=== PATIENT | male | born 1940 | race Caucasian/White ===

== ENCOUNTER → 2017-08-27 | Outpatient (CLI) | payer BC, OTHER ==
[~2017-08-27] MED LIST: ASPIRIN325 PO; CARDURA4 MG PO; COUMADIN 5 MG TA5 M1 PO; ENOXAPARIN100 MG/11 SUBQ; FLOMAX0.4 MG PO; LIPITOR10 MG PO; MOEXIPRIL-HCTZ1 EAC1 PO; PERCOCET 5-3251 EACH PO; PERCOCET PO; PREDNISONE 10 M10 MG PO; PROSCAR 5MG TABL5 MG PO; TOPROL XL50 MG PO; WHEELCHAIR1 EACH MC
== END ==
LOC: M.MRI 08-25 11:30 → M.RAD 09:55
DX: M47.26 Other spondylosis with radiculopathy, lumbar region (principal); M46.06 Spinal enthesopathy, lumbar region; M46.07 Spinal enthesopathy, lumbosacral region; M48.062 Spinal stenosis, lumbar region with neurogenic claudication

== ENCOUNTER 2019-10-19 11:42 | Inpatient (IN) | payer BC ==
[~2019-10-19] VITALS: Ht 180.3 cm; Wt 111.1 kg
[2019-10-19 11:51] VITALS: BP 167/105
[2019-10-19] MEDS ORDERED: HYDROCHLOROTHIA25 M2 PO (12:07)
[2019-10-19] MEDS ORDERED: COUMADIN 5 MG TA5 M1 (12:09)
[2019-10-19 12:29] LABS: BE 0.3 mmol/L (-2 to +3); PO2 70.6 mmHg (75.0-100.0)
[2019-10-19 12:36] LABS: ABSOLUTE EOSINOPHILS 0.1 thou/uL (0.0-0.7); ABSOLUTE LYMPHOCYTES 0.7 thou/uL (0.8-5.3); ABSOLUTE MONOCYTES 0.7 thou/uL (0.0-1.2); ABSOLUTE NEUTROPHILS 7.3 thou/uL (1.6-8.1); BASOPHILS 0.5 %; HEMATOCRIT 41.8 % (42.0-52.0); HEMOGLOBIN 14.2 gm/dL (14.0-18.0); LYMPHOCYTES 8.4 %; MCH 32.1 pg (26.0-34.0); MCV 94.2 fL (80.0-100.0); MONOCYTES 7.8 %; MPV 8.1 fl. (7.2-11.1); NUCLEATED RBCS 0 /100WBC; PLATELET COUNT* 198 thou/uL (150-400); POLYS 82.3 %; RBC 4.44 mil/uL (4.50-6.00); RDW-CV 14.3 % (10.5-14.5); WBC 8.8 thou/uL (4.0-11.0)
[2019-10-19 12:43] LABS: INR 2.5; PROTIME 24.8 Seconds (9.20-11.50)
[2019-10-19 12:44] LABS: CALCIUM 8.3 mg/dL (8.5-10.1); CREATININE 1.3 mg/dL (0.6-1.3); POTASSIUM 3.6 mmol/L (3.5-5.1)
[2019-10-19 12:54] LABS: ALBUMIN 3.1 g/dL (3.4-5.0); MAGNESIUM 1.6 mg/dL (1.8-2.4); TOTAL BILIRUBIN 0.6 mg/dL (<0.1-1.0)
[2019-10-19 13:43] LABS: URINE BILIRUBIN NEGATIVE (Negative); URINE BLOOD 3+ (Negative); URINE CLARITY TURBID; URINE COLOR DARK YELLOW; URINE GLUCOSE-RANDOM NEGATIVE (Negative); URINE KETONES NEGATIVE (Negative); URINE LEUKOCYTES-REFLEX 1+ (Negative); URINE NITRITE-REFLEX POSITIVE (Negative); URINE PROTEIN 2+ (Negative); URINE SPECIFIC GRAVITY 1.025 (1.005-1.030); URINE UROBILINOGEN 0.2 E.U./dl (0.2-1.0)
[2019-10-19 13:59] LABS: BACTERIA-REFLEX >30 Many /HPF (None Seen); CASTS None Seen /LPF (None Seen); CRYSTALS None Seen /LPF (None Seen); SQUAMOUS 0-3 Few /LPF (0-3); URINE RBC >20 Many /HPF (0-2); URINE WBC-REFLEX >25 Many /HPF (0-5); WBC CLUMPS Many (None Seen)
--- NOTE | 2019-10-19 14:50 | NUR ---
PT PUT ON HIGH FLOW OXYGEN PT COULD NOT TOLERATE BIPAP. NOTIFIED AND RT.
[2019-10-19 16:07] VITALS: BP 148/78
--- NOTE | 2019-10-19 18:38 | NUR ---
PT ALERT AND ORIENTED BUT [place] SOA NOTED ON 5L HI DARVIN USUALLY 4L NC IV FLUIDS AT 100ML/H 202 ON BLADDER SCAN PT DRIBBLES CONT. WITH HESITANCY URINAL GIVEN PT IS UNSTEADY PAIN TO RIGHT SIDE ANXIOUS AT TIMES MEDS HELP CALL LIGHT IN REACH
[2019-10-19 20:00] VITALS: BP 119/75
--- NOTE | 2019-10-19 20:00 | NUR ---
RECEIVED REPORT AND ASSUMED CARE OF PT, ASSESSMENT COMPLETED. PT RESTING WITH EYES CLOSED. VOIDING FREQ IN SM AMTS OF FOUL, CLOUDY YELLOW URINE PER URINAL. TELEMETRY ON SHOWING SR WITH 1ST AVB. WILL CONT TO MONITOR AND ASSIST NEEDED.
[2019-10-20] VITALS: BP 120/75
[2019-10-20 04:00] VITALS: BP 114/70
[2019-10-20 05:19] LABS: ABSOLUTE EOSINOPHILS 0.2 thou/uL (0.0-0.7); ABSOLUTE LYMPHOCYTES 0.9 thou/uL (0.8-5.3); ABSOLUTE MONOCYTES 0.9 thou/uL (0.0-1.2); ABSOLUTE NEUTROPHILS 4.4 thou/uL (1.6-8.1); BASOPHILS 0.6 %; EOSINOPHILS 3.5 %; HEMATOCRIT 38.1 % (42.0-52.0); HEMOGLOBIN 12.8 gm/dL (14.0-18.0); INR 2.4; LYMPHOCYTES 14.1 %; MCH 31.8 pg (26.0-34.0); MCHC 33.6 g/dL (28.0-37.0); MCV 94.7 fL (80.0-100.0); MPV 8.2 fl. (7.2-11.1); NUCLEATED RBCS 0 /100WBC; PLATELET COUNT* 186 thou/uL (150-400); POLYS 67.8 %; PROTIME 24.1 Seconds (9.20-11.50); RBC 4.03 mil/uL (4.50-6.00); RDW-CV 14.3 % (10.5-14.5); WBC 6.5 thou/uL (4.0-11.0)
[2019-10-20 05:27] LABS: CALCIUM 7.6 mg/dL (8.5-10.1); CREATININE 1.3 mg/dL (0.6-1.3); POTASSIUM 3.5 mmol/L (3.5-5.1)
--- NOTE | 2019-10-20 06:02 | NUR ---
SLEPT WELL ALL NIGHT. CONT TO HAVE FREQ URINATION IN SM AMTS. CONT TO BE SOA WITH EXERTION. O2 ON AT 5L/HFC. NO CHANGE IN ASSESSMENT. TELEMETRY CONT TO SHOW SR WITH 1ST AVB. HS GOALS OF REST AND SAFETY ACHIEVED. HOURLY ROUNDING OBSERVED.
[2019-10-20 08:23] VITALS: BP 151/82
--- NOTE | 2019-10-20 12:20 | 2DMMODE ---
[place] [address] 2 D/M-MODE ECHOCARDIOGRAM Name: ASHISH MARTINEZ Room: [address] IN .R.#: [id number] Admission: 10/19/19 Attend Phys: Dhruv Wiley, Discharge: Date of : 36 Date of Service: 10/20/19 1220 Report #: [id number] THIS REPORT FOR: cc: Keisha Man Maggie M. DO Blick, David R. MD [facility] ~ APPROVED REPORT Study performed: 10/20/2019 10:36:05 EXAM: Comprehensive 2D, Doppler, and color-flow Echocardiogram Patient Location: In-Patient Room #: [facility] Status: routine BSA: 2.30 HR: 95 bpm BP: 151/82 mmHg Rhythm: NSR Other Information Study Quality: Good Indications Dyspnea 2D Dimensions IVSd: 11.48 (7-11mm) LVOT Diam: 21.77 (18-24mm) LVDd: 51.97 mm PWd: 10.93 (7-11mm) Ascending Ao: 42.28 (22-36mm) LVDs: 27.07 (25-40mm) Aortic Root: 34.90 mm Volumes Left Atrial Volume (Systole) LA ESV Index: 26.00 mL/m2 Aortic Valve AoV Peak Vik.: 1.26 m/s AO Peak Gr.: 6.34 mmHg LVOT Max P.22 mmHg AO Mean Gr.: 3.23 mmHg LVOT Mean P.54 mmHg LVOT Max V: 1.25 m/s AO V2 VTI: 19.24 cm LVOT Mean V: 0.71 m/s LACEY (VTI): 3.66 cm2 LVOT V1 VTI: 18.91 [place] [address] 2 D/M-MODE ECHOCARDIOGRAM Name: ASHISH MARTINEZ Room: [address] IN ..#: [id number] Admission: 10/19/19 Attend Phys: Dhruv Wiley, Discharge: Date of : 36 Date of Service: 10/20/19 1220 Report #: [id number] Mitral Valve E/A Ratio: 0.53 MV Decel. Time: 91.17 ms MV E Max Vik.: 0.62 m/s MV PHT: 26.44 ms MVA (PHT): 8.32 cm2 TDI E/Lateral E': 5.64 E/Medial E': 6.20 Medial E' Vik.: 0.10 m/s Lateral E' Vik.: 0.11 m/s Pulmonary Valve PV Peak Vik.: 1.14 m/s PV Peak Gr.: 5.17 mmHg Left Ventricle The left ventricle is normal size. There is normal LV segmental wall motion. There is normal left ventricular wall thickness. Left ventricular systolic function is normal. The left ventricular ejection fraction is within the normal range. LVEF is 65-70%. Grade I - abnormal relaxation pattern. Right Ventricle The right ventricle is normal size. The right ventricular systolic function is normal. Atria The left atrium size is normal. The right atrium size is normal. Aortic Valve The aortic valve is normal in structure. No aortic regurgitation is present. There is no aortic valvular stenosis. Mitral Valve The mitral valve is normal in structure. Mild mitral annular calcification. Trace mitral regurgitation. No evidence of mitral valve stenosis. Tricuspid Valve The tricuspid valve is normal in structure. Unable to assess PA pressure. Trace tricuspid regurgitation. Pulmonic Valve The pulmonary valve is normal in structure. Trace [place]mon[place] [address] 2 D/M-MODE ECHOCARDIOGRAM Name: ASHISH MARTINEZ [facility] Room: [address]#: [id number] Admission: 10/19/19 Attend Phys: Dhruv Wiley, Discharge: Date of : 36 Date of Service: 10/20/19 1220 Report #: [id number] Great Vessels The aortic root is normal in size. The ascending aorta is mildly dilated. IVC is not well visualized. Pericardium There is no pericardial effusion. <Conclusion> Left ventricular systolic function is normal. The left ventricular ejection fraction is within the normal range. <ELECTRONICALLY SIGNED> By: Charli Guerra MD, [facility] 10/20/19 1220 1220 1220 Charli Guerra MD, FAC /INF
[2019-10-20 12:22] VITALS: BP 111/58; BP 163/83
--- NOTE | 2019-10-20 13:08 | NUR ---
Pt is A&O. Resides at home with his . Independent. Pt has a rollator and cane that he keeps in his car for longer distances. Pt wears home o2 continuous, provided through [employer]. Pt has a portable tank in the room for use at nd. Hx of HH, does not recall with which agency. No hx of SNF. Hx of outpt therapy. Pt states that he may want HH at nd, therapies ordered. Following.
--- NOTE | 2019-10-20 13:42 | EKG ---
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: CCD : 1940 Requested By: Carlene Travis Order Number: [id number] MD: Charli Guerra Measurements Intervals [place] Rate: 103 P: OK: QRS: -16 QRSD: 116 T: -25 QT: 390 QTc: 511 Interpretive Statements sinus rhythm artifact noted Nonspecific intraventricular conduction delay Borderline T abnormalities, diffuse leads Compared to ECG 07/16/2016 20:08:20 T-wave abnormality still present Electronically Signed On 10-20-2019 13:42:03 CDT by Charli Guerra [email or web address] <ELECTRONICALLY SIGNED> By: Charli Guerra MD, [facility] 10/20/19 1342 1155 1155 Charli Guerra MD, [facility] /EPI
[2019-10-20 17:35] VITALS: BP 136/74
--- NOTE | 2019-10-20 18:54 | NUR ---
PT IS ALERT AND ORIENTED, BUT FRUSTRATED/IRRITATED T/O THE DAY PT HAD BM URINE STILL WITH FOUL SMELL DARK AND CLOUDY, POSSIBLY PURULENT LIKE, GRAND-DAUGHTER CAME TO VISIT PT BECAME MORE ANXIOUS BUT HE DOES NOT WANT TO BE HERE WANTS TO BE HOME IV FLUIDS CONT ONLY COMPLAINED OF PAIN ONCE TODAY
[2019-10-20 20:10] VITALS: BP 112/59
[2019-10-21] VITALS: BP 143/70
[2019-10-21 04:00] VITALS: BP 131/59
[2019-10-21 05:05] LABS: ABSOLUTE EOSINOPHILS 0.2 thou/uL (0.0-0.7); ABSOLUTE LYMPHOCYTES 0.9 thou/uL (0.8-5.3); ABSOLUTE MONOCYTES 0.9 thou/uL (0.0-1.2); ABSOLUTE NEUTROPHILS 3.9 thou/uL (1.6-8.1); BASOPHILS 0.6 %; EOSINOPHILS 3.5 %; HEMOGLOBIN 11.8 gm/dL (14.0-18.0); MCH 31.9 pg (26.0-34.0); MCHC 33.8 g/dL (28.0-37.0); MCV 94.4 fL (80.0-100.0); MONOCYTES 14.5 %; MPV 7.8 fl. (7.2-11.1); NUCLEATED RBCS 0 /100WBC; PLATELET COUNT* 181 thou/uL (150-400); POLYS 66.4 %; RBC 3.71 mil/uL (4.50-6.00); RDW-CV 14.3 % (10.5-14.5); WBC 5.9 thou/uL (4.0-11.0)
--- NOTE | 2019-10-21 05:15 | NUR ---
PT CARE ASSUMED AT 1930. SAT MAINTAINED IN O2. ALERT AND ORIENTED X4. DENIES PAIN AND SPB. CALL LIGHT WITHIN REACH AND BED IN LOW POSITION. HOURLY ROUNDING DONE FOR PT SAFETY.
[2019-10-21 05:22] LABS: PROTIME 29.8 Seconds (9.20-11.50)
[2019-10-21 05:24] LABS: ALBUMIN 2.4 g/dL (3.4-5.0); CALCIUM 7.3 mg/dL (8.5-10.1); POTASSIUM 3.2 mmol/L (3.5-5.1); TOTAL BILIRUBIN 0.2 mg/dL (<0.1-1.0); TOTAL PROTEIN 5.6 g/dL (6.4-8.2)
[2019-10-21 08:40] VITALS: BP 136/72
--- NOTE | 2019-10-21 13:17 | NUR ---
Pt med surg status. Pending cultures. Plan home with at dc, CM to discuss HH closer to discharge, anticipate dc once cultures received.
[2019-10-21 17:21] VITALS: BP 155/76
[2019-10-21 20:40] VITALS: BP 145/65
[2019-10-22] VITALS: BP 108/57; BP 156/57
[2019-10-22 04:47] LABS: ABSOLUTE EOSINOPHILS 0.3 thou/uL (0.0-0.7); ABSOLUTE LYMPHOCYTES 1.1 thou/uL (0.8-5.3); ABSOLUTE MONOCYTES 0.8 thou/uL (0.0-1.2); ABSOLUTE NEUTROPHILS 3.3 thou/uL (1.6-8.1); BASOPHILS 0.7 %; EOSINOPHILS 4.6 %; HEMATOCRIT 34.7 % (42.0-52.0); HEMOGLOBIN 11.9 gm/dL (14.0-18.0); LYMPHOCYTES 20.1 %; MCH 32.3 pg (26.0-34.0); MCHC 34.2 g/dL (28.0-37.0); MCV 94.7 fL (80.0-100.0); MONOCYTES 13.9 %; MPV 7.7 fl. (7.2-11.1); NUCLEATED RBCS 0 /100WBC; PLATELET COUNT* 188 thou/uL (150-400); POLYS 60.7 %; RBC 3.66 mil/uL (4.50-6.00); RDW-CV 14.1 % (10.5-14.5); WBC 5.5 thou/uL (4.0-11.0)
[2019-10-22 04:55] LABS: INR 2.7; PROTIME 26.3 Seconds (9.20-11.50)
[2019-10-22 05:13] LABS: ALBUMIN 2.4 g/dL (3.4-5.0); CALCIUM 7.6 mg/dL (8.5-10.1); POTASSIUM 3.7 mmol/L (3.5-5.1); TOTAL BILIRUBIN 0.2 mg/dL (<0.1-1.0); TOTAL PROTEIN 5.7 g/dL (6.4-8.2)
--- NOTE | 2019-10-22 05:13 | NUR ---
PT SLEPT FAIRLY WELL OVERNIGHT. AOX4, FLAT AFFECT AND FEW WORDS THIS SHIFT. HAS DENIED NEED FOR PAIN MEDICATION. NO HEMATURIA SEEN THIS SHIFT. AM LABS. LFA SL. O2 4L NC. MED SURG STATUS. TAKING SCHEDULED MEDS WITHOUT DIFFICULTY. ABLE TO USE CALL LITE AND MAKE NEEDS KNOWN. QAGAN TAYAGUNGIN.
[2019-10-22 08:00] VITALS: BP 147/71
[2019-10-22] MEDS ORDERED: FLORANEX TABLE1 EACH PO (08:55)
[2019-10-22] MEDS ORDERED: CEFUROXIME500 MG PO (08:55)
[2019-10-22 09:38] VITALS: BP 147/71
--- NOTE | 2019-10-22 10:07 | NUR ---
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
--- NOTE | 2019-10-22 11:30 | NUR ---
ASSUMED CARE OF PT AT 0730. PT RESTING IN BED WAITING FOR BREAKFAST. A&0X4, DENIES ANY PAIN OR SHORTNESS OF BREATH AT THIS TIME. FLAT AFFECT, [place]. PT MED SURG STATUS. ON 3L NC SAT 96%. PT UP WITH SBA TO BATHROOM. PT GOAL FOR TODAY IS AWAIT URINE CULTURE SENSITIVITIES AND DISCHARGE PLANNING TO HOME WITH HOME HEALTH. AM ASSESSMENT CHARTED. MEDICATIONS PER MAR. PT REPOSITIONS SELF. HOURLY ROUNDING OBSERVED. BED IN LOW POSITION. CALL LIGHT WITHIN REACH. WILL CONTINUE PLAN OF CARE.
[2019-10-22] MEDS ORDERED: BACTRIM DS TAB1 EACH PO (12:02)
--- NOTE | 2019-10-22 14:49 | NUR ---
URINE CULTURE SENSITIVITIES BACK. NEW ABX ORDERED AND GIVEN WITH NO COMPLICATIONS. DISCHARGE ORDERS RECEIVED. DISCHARGE INSTRUCTIONS, CARE NOTES, SCRIPTS AND FOLLOW UP APPTS GIVEN TO PT. PT COMMUNICATES UNDERSTANDING OF DISCHARGE TEACHING. IV AND EVIDENCE SPECIALIST REMOVED. PT DISCHARGED WITH ALL BELONGINGS AND PAPAERWORK VIA WHEELCHAIR WITH NURSING STAFF TO [facility]. PT DISCHARGED TO HOME WITH HOME HEALTH.
== END 2019-10-22 14:49 | disposition home health service (06) | DRG 871 ==
LOC: M.ERS 11:42 → M.TBA-ER 13:56 → M.2W 13:56
PROVIDERS: Personal Emergency Response Attendant; ADMIT Internal Medicine; ATTEND Internal Medicine
DX: A41.9 Sepsis, unspecified organism (principal); J96.21 Acute and chronic respiratory failure with hypoxia; N39.0 Urinary tract infection, site not specified; R31.9 Hematuria, unspecified; N40.1 Benign prostatic hyperplasia with lower urinary tract symptoms; R35.0 Frequency of micturition; N32.3 Diverticulum of bladder; B96.20 Unspecified Escherichia coli [E. coli] as the cause of diseases classified elsewhere; Z20.828 Contact with and (suspected) exposure to other viral communicable diseases; Z86.718 Personal history of other venous thrombosis and embolism; Z86.73 Personal history of transient ischemic attack (TIA), and cerebral infarction without residual deficits; Z86.711 Personal history of pulmonary embolism; Z79.01 Long term (current) use of anticoagulants; Z79.899 Other long term (current) drug therapy